=== PATIENT | male | born 1935 | race Caucasian/White ===

== ENCOUNTER 2018-12-30 00:48 | Emergency (ER) | payer MEDICARE, BC ==
[~2018-12-30] VITALS: Ht 175.3 cm; Wt 85.5 kg
[2018-12-30] MEDS ORDERED: CENT1TAB PO (01:04)
[2018-12-30] MEDS ORDERED: LEVO88TA3 PO (01:04)
[2018-12-30] MEDS ORDERED: ZOCO10TA PO (01:04)
[2018-12-30 01:32] LABS: BASO % 0.4 % (0.0-1.0); EOS # 0.1 10^3/uL (0.0-0.50); EOS % 1.6 % (0.0-3.0); HEMATOCRIT 37.6 % (42.0-52.0); HEMOGLOBIN 12.6 g/dl (13.5-17.5); LYMPH # 1.8 10^3/uL (1.5-4.5); LYMPH % 25.1 % (24.0-44.0); MEAN CORPUSCULAR HGB CONC 33.5 g/dl (32.0-36.5); MEAN CORPUSCULAR VOLUME 92.6 fl (80.0-96.0); MONO # 0.8 10^3/uL (0.0-0.8); MONO % 11.4 % (0.0-5.0); NEUTROPHILS # 4.5 10^3/uL (1.8-7.7); NEUTROPHILS % 61.2 % (36.0-66.0); PLATELET COUNT, AUTOMATED 166 10^3/uL (150-450); RED BLOOD COUNT 4.06 10^6/uL (4.30-6.10); WHITE BLOOD COUNT 7.3 10^3/uL (4.0-10.0)
--- NOTE | 2018-12-30 01:46 | REPVR ---
EXAM: CT Head Without Contrast EXAM DATE/TIME: 12/30/2018 1:03 AM CLINICAL HISTORY: 83 years old, male; Pain; Headache not specified; Additional info: [facility]ERSON TECHNIQUE: Imaging protocol: Axial computed tomography images of the head without contrast. Radiation optimization: All CT scans at this facility use at least one of these dose optimization techniques: automated exposure control; mA and/or kV adjustment per patient size (includes targeted exams where dose is matched to clinical indication); or iterative reconstruction. COMPARISON: No relevant prior studies available. FINDINGS: Brain: There is no acute intracranial abnormality. Moderate prominence of ventricles and sulci representing volume loss. Moderate small vessel ischemic changes are seen. There is no mass, midline shift, or mass effect. Antonio-white matter differentiation is preserved. There is no evidence of hemorrhage. There is no extra-axial fluid collection. Basal cisterns are patent. Ventricles: See Brain Finding. Bones/joints: Unremarkable. No acute fracture. Sinuses: Visualized sinuses are unremarkable. No fluid levels. Mastoid air cells: Visualized mastoid air cells are well aerated. No mastoid effusion. Soft tissues: Unremarkable. IMPRESSION: 1. Moderate volume loss and small vessel ischemic changes. 2. No acute intracranial abnormality. Electronically signed by: Candice Baker On 12/30/2018 01:45:59 AM
[2018-12-30 01:57] LABS: CALCIUM LEVEL 8.3 MG/DL (8.8-10.2); CREATININE FOR GFR 1.33 MG/DL (0.70-1.30); GLOMERULAR FILTRATION RATE 54.8 (>35); POTASSIUM SERUM 4.6 MEQ/L (3.5-5.1)
[2018-12-30 02:05] LABS: ERYTHROCYTE SEDIMENTATION RATE 25 mm/hr (0-20)
[2018-12-30] MEDS ORDERED: PRED20TA PO (02:18)
[2018-12-30] MEDS ORDERED: methylPREDNISolone INJ 125 MG/2 ML VIAL (J2930) IM ONE (02:30)
[2018-12-30 02:59] VITALS: BP 136/74
== END 2018-12-30 03:00 | disposition home or self-care (01) ==
LOC: M ED 00:48
DX: R51 Headache (principal); H81.49 Vertigo of central origin, unspecified ear; E78.5 Hyperlipidemia, unspecified; Z79.899 Other long term (current) drug therapy
CPT/HCPCS: 36415; 70450; 80048; 85025; 85652; 96372; 99284; J2930

== ENCOUNTER → 2019-02-04 | Outpatient (CLI) | payer MEDICARE, BC ==
[~2019-02-04] MED LIST: CENT1TAB PO; LEVO88TA3 PO; PRED20TA PO; ZOCO10TA PO
--- NOTE | 2019-02-04 10:42 | REP ---
Clinical: Pain without recent injury. Technique: AP, lateral, bilateral oblique views of the left wrist. 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 No acute fracture dislocation. Mild swelling along the radial side of the joint space should be correlated clinically. Impression: Mild/moderate swelling along the radial side of the wrist. Age-related degenerative changes. No acute fracture or dislocation. Electronically Signed by Luther Medley MD 02/04/2019 10:33 A
== END ==
LOC: M ADAMS 10:18
PROVIDERS: ATTEND Physician Assistant
DX: M25.532 Pain in left wrist (principal)